=== PATIENT | male | born 1985 | race Caucasian/White ===

== ENCOUNTER 2018-12-18 02:50 | Inpatient (IN) | payer BC ==
[2018-12-18] MEDS ORDERED: ACETAMINOPHEN 500 MG TAB PO PRN (03:50)
[2018-12-18] MEDS ORDERED: MORPHINE 2 MG/ML SYR IV PRN (03:50)
--- NOTE | 2018-12-18 04:16 | P.HP ---
Certification for Inpatient Patient admitted to: Inpatient With expected LOS: >2 Midnights Practitioner: I am a practitioner with admitting privileges, knowledge of patient current condition, hospital course, and medical plan of care. Services: Services provided to patient in accordance with Admission requirements found in Title 42 Section 412.3 of the Code of Federal Regulations Patient History Date of Service: 12/18/18 Reason for admission: acute pancreatitis History of Present Illness: Mr Tse is a 33 years old male with pretty benign past medical history, however, he drinks at least 2 liquor drinks every night. He start with nausea on and off about 2 weeks ago. Yesterday morning, he start having abdominal pain , mostly localized on epigastrium and left upper quadrant, constant, worse when he lay down and get better when he sit up. Intensity is 10/10. He denied fever or chills. The patient went to [facility] last night, CT abd/pelvis was remarkable for non-obstructive cholelithiasis, and signs of acute pancreatitis, Lab work showed normal WBC count, chemistry was not done. At my encounter, the patient was in moderate distress due to abdominal pain. Allergies No Known Allergies Allergy (Unverified 12/18/18 03:13) Home medications list reviewed: Yes Home Medications: NK [No Home Meds] 12/18/18 - Past Medical/Surgical History Has patient received pneumonia vaccine in the past: No Diabetic: No -: lasik - Family History Father -: Hypertension Mother -: Hypertension - Social History Smoking Status: Former smoker Alcohol use: Yes CD- Drugs: No Caffeine use: Yes Place of Residence: Home Review of Systems 10-point ROS is otherwise unremarkable Physical Examination - Physical Exam General: Alert, In no apparent distress HEENT: Atraumatic, PERRLA, Mucous membr. moist/pink, EOMI, Sclerae nonicteric Neck: Supple, 2+ carotid pulse no bruit, No LAD, Without JVD or thyroid abnormality Respiratory: Clear to auscultation bilaterally, Normal air movement Cardiovascular: Regular rate/rhythm, Normal S1 S2 Gastrointestinal: Normal bowel sounds, Tenderness (tender to palpation epigastrium and LUQ) Musculoskeletal: No tenderness Integumentary: No rashes Neurological: Normal gait, Normal speech, Normal strength at 5/5 x4 extr, Normal tone, Normal affect Lymphatics: No axilla or inguinal lymphadenopathy Assessment and Plan - Problems (Diagnosis) (1) Acute pancreatitis Current Visit: Yes Status: Acute Qualifiers: Pancreatitis type: unspecified pancreatitis type Acute pancreatitis complication: unspecified Qualified Code(s): K85.90 - Acute pancreatitis without necrosis or infection, unspecified (2) Alcohol abuse Current Visit: Yes Status: Acute - Plan Will admit the patient due to acute pancreatitis. Will order CBC/d, CMP, amylase , lipase, lipid profile and abdominal US. Continue NPO, IV fluids and symptomatic medication for pain and nausea. Watch for alcohol withdrawal symptoms. - Advance Directives Does patient have a Living Will: No Does patient have a Durable POA for Healthcare: No - Code Status/Comfort Care Code Status Assessed: Yes Code Status: Full Code
[2018-12-18] MEDS: NA CHLORIDE 0.9% 1,000 ML IV SCH ×3 (04:43→12:47)
[2018-12-18] MEDS: ONDANSETRON 4 MG/2 ML VIAL IV PRN (04:44)
[2018-12-18 05:17] LABS: Protime INR 1.04
[2018-12-18 05:25] LABS: ALT/SGPT 147 U/L (12-78); AST/SGOT 277 U/L (15-37); Albumin 2.7 g/dL (3.4-5.0); Alkaline Phosphatase 179 U/L (45-117); Amylase Level 107 U/L (25-115); BUN Blood Urea Nitrogen 9 mg/dL (7-18); Bicarbonate 25 mmol/L (21-32); Bilirubin Total 3.2 mg/dL (0.2-1.0); Glucose Level 130 mg/dL (74-106); Lipase 4186 U/L (73-393); Potassium 4.4 mmol/L (3.5-5.1); Protein, Total 6.7 g/dL (6.4-8.2); Sodium Level 135 mmol/L (136-145)
[2018-12-18 05:30] LABS: Absolute Lymphocytes (CBC) 1.4 K/uL (0.7-4.9); Absolute Monocytes 0.3 K/uL (0.1-1.3); Absolute Neutrophil 6.4 K/uL (1.8-8.0); Basophils % 1.1 % (0-1.3); Hematocrit 41.2 % (39.6-49.0); Lymphocytes % 17.1 % (15.3-44.8); MPV 10.9 fL (7.6-11.3); Monocytes % 3.7 % (3.3-12.3); RBC Red Blood Cell Count 4.04 M/uL (4.33-5.43)
[2018-12-18 06:00] LABS: HDL Cholesterol 25 mg/dL (40-60); LDL, Direct 195 mg/dL (100-129)
--- NOTE | 2018-12-18 08:40 | RAD REPORT ---
EXAM DESCRIPTION: US - Abdomen Exam Complete - 12/18/2018 8:04 am CLINICAL HISTORY: Abdominal pain. acute pancreatitis COMPARISON: No comparisons FINDINGS: Prominent diffuse fatty infiltration of the liver is seen. No focal liver lesions or intra hepatic biliary dilatation is seen. The gallbladder demonstrates no gallstones, pericholecystic fluid or gallbladder wall thickening. Co mmon bile duct is normal in caliber measuring 4 mm. Both kidneys are normal in size, shape and echotexture. No hydronephrosis, focal lesion of concern or perinephric fluid. The spleen is normal in size measuring 10 cm. The pancreas and aorta are obscured by bowel gas. The visualized aspects of the IVC are grossly normal. IMPRESSION: Diffuse fatty liver is present.
[2018-12-18] MEDS ORDERED: MORPHINE 2 MG/ML SYR IV ONE (09:59)
[2018-12-18] MEDS: ENOXAPARIN 40 MG/0.4 ML SQ SCH (12:43)
[2018-12-18] MEDS: MORPHINE 4 MG/ML SYR IV PRN ×2 (16:06→22:55)
[2018-12-18] MEDS ORDERED: GLUCAGON 1 MG/VIAL IM PRN ×2 (16:32→16:39)
[2018-12-18] MEDS ORDERED: D50W 25 GM/50 ML SYRINGE IV PRN (16:32)
[2018-12-18] MEDS ORDERED: INSULIN -REGULAR HUMAN 100 UNIT in NA CHLORIDE 0.9% 100 ML IV SCH (16:45)
[2018-12-18] MEDS ORDERED: D5 0.45 NS 1,000 ML IV SCH (17:00)
[2018-12-18] MEDS: INSULIN -REGULAR HUMAN 100 UNIT in NA CHLORIDE 0.9% 100 ML IV SCH (17:03)
[2018-12-18] MEDS: D5 0.45 NS 1,000 ML IV SCH ×2 (19:00→22:55)
[2018-12-18] MEDS: HYDROMORPHONE HCL 1 MG/ML INJ IV PRN (19:16)
[2018-12-18] MEDS: D50W 25 GM/50 ML SYRINGE IV PRN ×3 (20:08→22:40)
--- NOTE | 2018-12-18 20:28 | PN ---
Date of Progress Note: 12/18/2018 Subjective: The patient seen and examined. Chart reviewed and case discussed with RN. The patient states that his pain has improved; however, still hurting. Has not had any further vomiting, but sti ll nauseous. Medications: List reviewed. Physical Examination: Vital Signs: Temperature 98.7, heart rate 83, blood pressure 134/80, respirations 14, O2 96% on room air. General: Awake, alert oriented x3, in some mild distress. CV: S1, S2. Peripheral pulses present. No murmurs. Respiratory: Moving air well bilaterally. No wheezing or stridor. Gastrointestinal: Abdomen is soft. Tenderness to palpation. The patient does have some voluntary gu arding. No rigidity. Bowel sounds hypoactive. Extremities: No clubbing, cyanosis, or edema. Neurologic: Nonfocal. Laboratory Data: Sodium 135, potassium 4.4, chloride 99, CO2 25, BUN 9, creatinine 1.04, glucose 130 , calcium 7.3, AST 277, ALT 147, alkaline phosphatase 179, albumin 2.7, total protein 6.7, triglyceri wen greater than 4000, cholesterol 431, LDL 195, HDL 25. Amylase 107, lipase 4186. WBC 8.2, H and H 14.1 and 41.2, platelets 129. Abdominal ultrasound shows diffuse fatty liver. Assessment And Plan: A 33-year-old male with: 1.Acute pancreatitis likely secondary to alcohol and elevated triglycerides. We will continue with IV fluids and adjust pain medications. Increase dose of morphine. The patient was recently in [place] ER, found to have nonobstructive cholelithiasis. There was no necrosis or infection. 2.Alcohol abuse, acute. 3.Elevated triglyceride levels. We will start the patient on insulin and monitor triglyceride level s. Plan: Transfer to ICU for IV insulin. Monitor triglyceride levels. Keep n.p.o. GI consultation. SA/MODL Voice ID: [id number] Report ID: [id number]
[2018-12-19] MEDS: D50W 25 GM/50 ML SYRINGE IV PRN ×8 (00:15→12:37)
[2018-12-19] MEDS: HYDROMORPHONE HCL 1 MG/ML INJ IV PRN ×5 (00:56→20:28)
[2018-12-19] MEDS: D5 0.45 NS 1,000 ML IV SCH ×4 (01:40→21:58)
[2018-12-19] MEDS: INSULIN -REGULAR HUMAN 100 UNIT in NA CHLORIDE 0.9% 100 ML IV SCH (04:26)
[2018-12-19] MEDS: MORPHINE 4 MG/ML SYR IV PRN ×3 (04:32→18:35)
[2018-12-19] MEDS: ONDANSETRON 4 MG/2 ML VIAL IV PRN (04:39)
[2018-12-19 06:40] VITALS: BMI 23.7
[2018-12-19 07:51] LABS: LDL, Direct 168 mg/dL (100-129)
[2018-12-19] MEDS: ENOXAPARIN 40 MG/0.4 ML SQ SCH (08:09)
[2018-12-19] MEDS ORDERED: SODIUM CHLORIDE 0.9% 10ML INJ IV PRN (08:20)
[2018-12-19] MEDS ORDERED: D5 NS IV SCH ×2 (09:00)
[2018-12-19] MEDS ORDERED: [UNRECOGNIZED DRUG - OTHER] IV SCH ×2 (09:00)
[2018-12-19 09:18] LABS: Bilirubin Total 3.3 mg/dL (0.2-1.0); Protein, Total 6.1 g/dL (6.4-8.2)
[2018-12-19] MEDS: PANTOPRAZOLE 40 MG INJ IVP SCH (09:45)
[2018-12-19 13:58] LABS: LDL, Direct 178 mg/dL (100-129)
--- NOTE | 2018-12-19 16:04 | PN ---
Date of Progress Note: 12/19/2018 Subjective: The patient seen and examined. Chart reviewed and case discussed with RN. The patient states his abdominal pain is better, however, still having some nausea. The patient was transferred to the ICU yesterday and placed on insulin drip. The patient did have some hypoglycemic episodes due to the insulin drip. His IV fluids will be adjusted. No further vomiting. Medications: List reviewed. Physical Examination: Vital Signs: Temperature 98.7, heart rate 121, blood pressure 120/77, respirations 19, and O2 93% on room air. General: Awake, alert, oriented x3. Some mild distress due to pain. Ill-appearing male. CV: S1, S2. Sinus tachycardia. Peripheral pulses present. Respiratory: Moving air well bilaterally. No wheezing or stridor. Gastrointestinal: Abdomen is distended. Mild rigidity is present. No rebound or guarding. Tendern ess to palpation. Bowel sounds positive. Extremities: No clubbing, cyanosis, or edema. Neurologic: Nonfocal. Laboratory Data: Sodium 131, potassium unable to be reported due to the patient's elevated triglycer ides in the blood, chloride 98, CO2 25, BUN 3, creatinine 1.06, glucose 205, calcium 6.2, corrected c alcium is 8, albumin is 2, lipase is 1402, triglycerides are 2020. Assessment: A 33-year-old male with: 1.Acute pancreatitis secondary to alcohol and elevated triglycerides, improving. Lipase level trend ing down. Triglycerides are also improving. We will adjust IV fluid rate and switch to D10 half NS. GI has been consulted. No necrosis or infection seen on CT scans. 2.Alcohol abuse. Counseled. 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 We will continue on insulin drip. Triglyceride levels carolyn nding down. Recheck this afternoon. If less than a 1000, we will take the patient off insulin drip. 4.Pseudohypocalcemia. Corrected calcium is 8. Plan: Continue to monitor in ICU setting. SA/MODL Voice ID: [id number] Report ID: [id number]
[2018-12-20] MEDS: HYDROMORPHONE HCL 1 MG/ML INJ IV PRN ×4 (00:15→20:35)
[2018-12-20] MEDS: MORPHINE 4 MG/ML SYR IV PRN (03:34)
[2018-12-20] MEDS: D5 0.45 NS 1,000 ML IV SCH ×4 (04:00→20:35)
[2018-12-20 05:44] LABS: Bicarbonate 31 mmol/L (21-32); Glucose Level 142 mg/dL (74-106); Potassium 3.9 mmol/L (3.5-5.1); Sodium Level 134 mmol/L (136-145)
[2018-12-20 05:45] LABS: BUN Blood Urea Nitrogen < 1 mg/dL (7-18)
[2018-12-20 05:50] LABS: Magnesium 1.2 mg/dL (1.8-2.4)
[2018-12-20 06:02] LABS: LDL, Direct 171 mg/dL (100-129)
[2018-12-20] MEDS ORDERED: Magnesium Sulfate 2gm IVPB 2 G/50 ML BAG IV ONE (07:00)
[2018-12-20] MEDS: ENOXAPARIN 40 MG/0.4 ML SQ SCH (08:47)
[2018-12-20] MEDS: PANTOPRAZOLE 40 MG INJ IVP SCH (08:48)
[2018-12-20] MEDS ORDERED: CALCIUM GLUC 10% INJ 4.65 MEQ in NA CHLORIDE 0.9% 100 ML IV ONE (11:23)
--- NOTE | 2018-12-20 14:48 | PN ---
Date of Progress Note: 12/20/2018 Subjective: The patient seen and examined. Chart reviewed and case discussed with RN. The patient still n.p.o. States pain is better. Did have some episodes of dizziness while getting up, now off i nsulin drip. Medications: List reviewed. Physical Examination: Vital Signs: Temperature 98.9, heart rate 103, blood pressure 122/77, respirations 18, and O2 97% on 2 L via nasal cannula. General: Awake, alert, and oriented x3. Ill-appearing male. CV: S1 and S2. Sinus tachycardia. No murmurs. Respiratory: Moving air well bilaterally. No wheezing or stridor. Gastrointestinal: Abdomen is somewhat distended, rigid. Hypoactive bowel sounds. Tenderness to pal pation. Extremities: No clubbing, cyanosis, or edema. Neurologic: Nonfocal. Laboratory Data: Sodium 134, potassium 3.9, chloride 97, CO2 31, BUN less than 1, creatinine 0.91, g lucose 142, calcium 6.8, magnesium 1.2. Triglycerides 638, LDL is 171. Lipase is 890. Assessment And Plan: A 33-year-old male with: 1.Acute pancreatitis secondary to alcohol use and elevated triglycerides, improving. Lipase levels are trending down. Triglyceride levels also trending down. The patient now off IV insulin. We will continue IV fluids. We will start on clear liquid diet. Appreciate Dr. Pfeiffer's input. We will mo nitor CBC, CMP, trend lipase level. 2.Alcohol abuse, counseled. 3.Hypertriglyceridemia, now off insulin drip, trending down. 4.Hypocalcemia. We will replace and monitor. 5.Hypomagnesemia. We will replace and monitor. 6.Gastrointestinal and deep venous thrombosis prophylaxis. SCDs and PPI. The patient is also on Lo venox. Plan: Step down from ICU. Start on clear liquid diet if okay with GI. SA/MODL Voice ID: [id number] Report ID: [id number]
[2018-12-20] MEDS ORDERED: NA CHLORIDE 0.9% 1,000 ML IV ONE (16:00)
[2018-12-20 16:42] LABS: Hematocrit 33.3 % (39.6-49.0); MPV 10.8 fL (7.6-11.3); RBC Red Blood Cell Count 3.38 M/uL (4.33-5.43)
[2018-12-20 17:09] LABS: Blood Morphology Comment NOTED (NOT SEEN); Platelet Estimate ADEQ
[2018-12-20 17:10] LABS: Stomatocytes 2+; Target Cells FEW
--- NOTE | 2018-12-20 17:15 | P.PN ---
Date of Service: 12/20/18 nurse called regarding VS showing tachycardia, temp of 100.4 flagging for sepsis. Lactate, WBC normal. Not clinically in sepsis. Will bolus with IVFs NS 1L. reassess.
--- NOTE | 2018-12-20 20:13 | P.PN ---
Subjective Date of Service: 12/20/18 Chief Complaint: acute pancreatitis due to EtOH / TGs Subjective: Improving (He feels much better with minimal abdominal pain. No N/ V. Lipase down from 4186 to 890 (still elevated).) Review of Systems 10-point ROS is otherwise unremarkable Gastrointestinal: Abdominal Pain (Improved) Physical Examination - Vital Signs Temperature: 100.4 F Blood Pressure: 138/89 Pulse: 116 Respirations: 20 Pulse Ox (%): 97 - Physical Exam General: Alert, In no apparent distress, Oriented x3, Cooperative HEENT: Atraumatic, Normocephalic, PERRLA, EOMI Neck: 2+ carotid pulse no bruit Respiratory: Normal air movement Cardiovascular: Normal pulses Gastrointestinal: No rebound, No guarding, Tenderness (mild at most) Neurological: Normal speech, Normal strength at 5/5 x4 extr - Studies Laboratory Data (last 24 hrs) 12/20/18 16:20: WBC 7.4, Hgb 11.4 L D, Hct 33.3 L D, Plt Count 102 L D 12/20/18 15:30: Magnesium 1.8 D 12/20/18 05:10: Lipase 890 H 12/20/18 05:10: Sodium 134 L, Potassium 3.9, BUN < 1 L, Creatinine 0.91, Glucose 142 H, Magnesium 1.2 L* 12/20/18 05:10: Triglycerides 638 H, LDL Cholesterol Direct 171 H Assessment And Plan - Current Problems (Diagnosis) (1) Hypertriglyceridemia Current Visit: Yes Status: Acute (2) Epigastric abdominal pain Current Visit: Yes Status: Acute (3) Acute pancreatitis Current Visit: Yes Status: Acute Qualifiers: Pancreatitis type: unspecified pancreatitis type Acute pancreatitis complication: unspecified Qualified Code(s): K85.90 - Acute pancreatitis without necrosis or infection, unspecified (4) Alcohol abuse Current Visit: Yes Status: Acute - Plan REC: 1) NPO except ice chips / sips of water (await lipase to be normal before advancing diet) 2) AA on discharged 3) evaluation for TG genetic abnormality 4) continue IVFs at 150 cc/o
[2018-12-20] MEDS ORDERED: MAGNESIUM SULFATE 1 gm IVPB 1 GM/100 ML BAG IV ONE (21:00)
[2018-12-21] MEDS: HYDROMORPHONE HCL 1 MG/ML INJ IV PRN ×2 (01:39→06:02)
[2018-12-21] MEDS: D5 0.45 NS 1,000 ML IV SCH ×4 (02:26→23:57)
[2018-12-21 05:11] LABS: Absolute Lymphocytes (CBC) 1.8 K/uL (0.7-4.9); Absolute Monocytes 0.5 K/uL (0.1-1.3); Absolute Neutrophil 3.9 K/uL (1.8-8.0); Basophils % 1.3 % (0-1.3); Eosinophils % 1.1 % (0-4.4); Hematocrit 31.1 % (39.6-49.0); Lymphocytes % 28.2 % (15.3-44.8); MPV 10.2 fL (7.6-11.3); Monocytes % 7.6 % (3.3-12.3); RBC Red Blood Cell Count 3.14 M/uL (4.33-5.43)
[2018-12-21 05:33] LABS: ALT/SGPT 70 U/L (12-78); AST/SGOT 75 U/L (15-37); Alkaline Phosphatase 114 U/L (45-117); BUN Blood Urea Nitrogen 2 mg/dL (7-18); Bicarbonate 29 mmol/L (21-32); Bilirubin Total 3.1 mg/dL (0.2-1.0); Glucose Level 125 mg/dL (74-106); Lipase 605 U/L (73-393); Magnesium 2.2 mg/dL (1.8-2.4); Potassium 3.4 mmol/L (3.5-5.1); Sodium Level 134 mmol/L (136-145)
[2018-12-21] MEDS ORDERED: POTASSIUM CL SA 10 MEQ TAB PO ONE ×2 (05:43→13:08)
[2018-12-21] MEDS: PANTOPRAZOLE 40 MG INJ IVP SCH (08:30)
[2018-12-21] MEDS: ENOXAPARIN 40 MG/0.4 ML SQ SCH (08:30)
[2018-12-21] MEDS: HYDROCODONE/APAP 7.5/325 MG TAB PO PRN ×2 (10:47→23:55)
[2018-12-21] MEDS: MORPHINE 4 MG/ML SYR IV PRN (16:20)
--- NOTE | 2018-12-21 16:42 | P.PN ---
Subjective Date of Service: 12/21/18 Chief Complaint: acute pancreatitis due to EtOH / TGs Subjective: Improving (RLQ/LLQ pain mild today. Tolerating water and ice chips , also had some CLs last night. Lipase continues to slowly decline from 890 yesterday to 605 today.) Review of Systems 10-point ROS is otherwise unremarkable Gastrointestinal: Abdominal Pain (mild lower abdominal pain today, denies constipation) Physical Examination - Vital Signs Temperature: 99.1 F Blood Pressure: 133/82 Pulse: 91 Respirations: 18 Pulse Ox (%): 96 - Physical Exam General: Alert, In no apparent distress, Oriented x3, Oriented x1, Cooperative HEENT: Atraumatic, Normocephalic, PERRLA, EOMI, Scleral icterus Neck: Supple Respiratory: Normal air movement Cardiovascular: Normal pulses Gastrointestinal: Soft and benign, No rebound, No guarding, Tenderness (mild RLQ /LLQ tenderness ) Neurological: Normal speech, Normal strength at 5/5 x4 extr - Studies Laboratory Data (last 24 hrs) 12/21/18 12:49: Potassium 3.5 12/21/18 04:38: WBC 6.3 D, Hgb 10.7 L, Hct 31.1 L, Plt Count 107 L 12/21/18 04:38: Sodium 134 L, Potassium 3.4 L, BUN 2 L, Creatinine 0.81, Glucose 125 H, Magnesium 2.2, Total Bilirubin 3.1 H, AST 75 H D, ALT 70, Alkaline Phosphatase 114, Triglycerides 307 H, Lipase 605 H 12/20/18 16:20: WBC 7.4, Hgb 11.4 L D, Hct 33.3 L D, Plt Count 102 L D Assessment And Plan - Current Problems (Diagnosis) (1) Hypertriglyceridemia Current Visit: Yes Status: Acute Comment: Improved. (2) Epigastric abdominal pain Current Visit: Yes Status: Acute Comment: Resolved. (3) Acute pancreatitis Current Visit: Yes Status: Acute Comment: Improved. Qualifiers: Pancreatitis type: unspecified pancreatitis type Acute pancreatitis complication: unspecified Qualified Code(s): K85.90 - Acute pancreatitis without necrosis or infection, unspecified (4) Alcohol abuse Current Visit: Yes Status: Acute - Plan REC: 1) limited clear liquids 2) AA on discharged 3) evaluation for TG genetic abnormality 4) continue IVFs at 150 cc/o
--- NOTE | 2018-12-21 18:22 | PN ---
Subjective: The patient is seen and examined. Chart reviewed and case discussed with RN. The patie nt denies any significant abdominal pain. Does have some discomfort. No nausea or vomiting. Medications: List reviewed. Physical Examination: Vital Signs: Temperature 99.7, heart rate 92, blood pressure 135/92, respirations 18, O2 95% on room air. General: Awake, alert, oriented x3, not in any acute distress, ill-appearing male. CV: S1, S2. Regular rate and rhythm. No murmurs. Respiratory: Moving air well bilaterally. No wheezing or stridor. Gastrointestinal: Abdomen is mildly rigid. Mild tenderness to palpation. Minimal distention. Reynaldo l sounds positive. Extremities: No clubbing, cyanosis, or edema. Neurologic: Nonfocal. Laboratory Data: Sodium 134, potassium 3.4, repeat potassium level is 3.5, chloride 101, CO2 29, BUN 2, creatinine 0.81, glucose 125, calcium 7.3, AST 75, ALT 70, total bilirubin 3.1, albumin 2, trigly cerides 307. WBC 6.3, H and H 10.7/31.1, platelets 107. Assessment: A 33-year-old male with: 1.Acute pancreatitis secondary to alcohol use and elevated triglycerides. Lipase levels and triglyc eride levels are trending down. The patient does however have some elevated total bilirubin. We anai l check direct bilirubin level. Continue IV fluids. The patient switched back to n.p.o. except ice chips and pills by GI. We would consider advancing diet to full liquids and to GI soft. This is the patient's third day in the hospital. Overall, improving. Still has some abdominal discomfort, but no nausea or vomiting. 2.Hypertriglyceridemia, improving. The patient will benefit from Repatha. 3.Alcohol abuse. Counseled. 4.Hypocalcemia. Corrected calcium is normal. The patient has albumin level of 2. 5.Hypoalbuminemia, albumin of 2. 6.Hypomagnesemia. Replaced. We will continue to monitor. 7.Hypokalemia. Replaced. 8.Gastrointestinal and deep venous thrombosis prophylaxis with Lovenox and PPI. Plan: Advance diet as tolerated. Monitor lipase levels and triglyceride levels. If total bilirubin does not improve, may need MRCP or CT scan to rule out ductal stones. /LIVIER Voice ID: [id number] Report ID: [id number]
[2018-12-22 06:44] LABS: ALT/SGPT 55 U/L (12-78); AST/SGOT 46 U/L (15-37); Alkaline Phosphatase 120 U/L (45-117); BUN Blood Urea Nitrogen 3 mg/dL (7-18); Bicarbonate 27 mmol/L (21-32); Bilirubin Total 2.4 mg/dL (0.2-1.0); Glucose Level 121 mg/dL (74-106); Lipase 758 U/L (73-393); Potassium 3.9 mmol/L (3.5-5.1); Protein, Total 6.1 g/dL (6.4-8.2); Sodium Level 138 mmol/L (136-145)
[2018-12-22 06:51] LABS: Absolute Lymphocytes (CBC) 1.9 K/uL (0.7-4.9); Absolute Monocytes 0.6 K/uL (0.1-1.3); Absolute Neutrophil 3.1 K/uL (1.8-8.0); Basophils % 1.2 % (0-1.3); Eosinophils % 1.1 % (0-4.4); Hematocrit 29.4 % (39.6-49.0); Lymphocytes % 33.8 % (15.3-44.8); MPV 9.8 fL (7.6-11.3); Monocytes % 9.9 % (3.3-12.3); RBC Red Blood Cell Count 2.93 M/uL (4.33-5.43)
[2018-12-22] MEDS: D5 0.45 NS 1,000 ML IV SCH ×2 (06:55→09:40)
[2018-12-22] MEDS: ENOXAPARIN 40 MG/0.4 ML SQ SCH (08:31)
[2018-12-22] MEDS: PANTOPRAZOLE 40 MG INJ IVP SCH (08:32)
[2018-12-22 10:03] VITALS: O2SAT 97
[2018-12-22 12:39] VITALS: BP 133/99; TEMP 99.2
--- NOTE | 2018-12-22 14:27 | P.PN ---
Subjective Date of Service: 12/22/18 Chief Complaint: acute pancreatitis due to EtOH / TGs Subjective: No new changes (He feels better. Tolerated CLs and FLs with slight increase in lipase. He knows to abstain from all EtOH and will likely need EtOH rehab program. Appears to have early signs of end stage liver disease with low platelets. Also his hgb has declined to anemic levels 9-10 as well. He is to see endocrinology as outpatient for elevated TGs > 4,000 on admission with cholesterol of 431.) Review of Systems 10-point ROS is otherwise unremarkable General: Weakness (Improved) Physical Examination - Vital Signs Temperature: 99.2 F Blood Pressure: 133/99 Pulse: 92 Respirations: 16 Pulse Ox (%): 96 - Physical Exam General: Alert, In no apparent distress, Cooperative HEENT: Atraumatic, Normocephalic, PERRLA, EOMI Neck: Supple Respiratory: Normal air movement Cardiovascular: Normal pulses Gastrointestinal: No rebound, No guarding, Tenderness (mild at most) Neurological: Normal speech, Normal strength at 5/5 x4 extr - Studies Laboratory Data (last 24 hrs) 12/22/18 06:09: Sodium 138, Potassium 3.9, BUN 3 L, Creatinine 0.74, Glucose 121 H, Total Bilirubin 2.4 H, AST 46 H, ALT 55, Alkaline Phosphatase 120 H, Lipase 758 H 12/22/18 06:09: WBC 5.7, Hgb 9.9 L, Hct 29.4 L, Plt Count 118 L Assessment And Plan - Current Problems (Diagnosis) (1) Hypertriglyceridemia Current Visit: Yes Status: Acute Comment: Improved. (2) Epigastric abdominal pain Current Visit: Yes Status: Acute Comment: Resolved. (3) Acute pancreatitis Current Visit: Yes Status: Acute Comment: Improved. Qualifiers: Pancreatitis type: unspecified pancreatitis type Acute pancreatitis complication: unspecified Qualified Code(s): K85.90 - Acute pancreatitis without necrosis or infection, unspecified (4) Alcohol abuse Current Visit: Yes Status: Acute (5) Thrombocytopenia Current Visit: Yes Status: Acute (6) Anemia Current Visit: Yes Status: Acute - Plan REC: 1) clear liquids and advance slowly to LF/LC diet 2) AA on discharged (no EtOH) 3) evaluation for TG genetic abnormality -> endocrinology appt soon as outpatient & being discharged with TG medication 4) continue hydrating beverages 5) GI clinic f/u 6) HAV/HBV vaccinations & Thiamine / Folate supplements 7) consider low dose Librium for 7-10 days
--- NOTE | 2018-12-23 13:21 | DS ---
Date of Discharge: 12/22/2018 [place]: Dr. Pfeiffer with GI. Admitting Diagnoses: 1. Acute pancreatitis. 2. Alcohol abuse. Discharge Diagnoses: 1. Acute pancreatitis. 2. 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 3. Alcohol abuse, counseled. 4. Hypocalcemia. 5. Hypoalbuminemia. 6. Hypomagnesemia, corrected. 7. Hypokalemia, replaced. Hospital Course: The patient is a 33-year-old male, who was admitted to the hospital for acute pancreatitis. The patient does have history of alcohol abuse , drinks 2 liquor drinks every day. The patient gone to [facility]. CT scan at the [facility] facility was remarkable for nonobstructive cholelithiasis and signs of acute pancreatitis. The patient's workup showed normal WBC count, however, lipase was significantly elevated at 4186. The patient was started on IV fluids. The patient was counseled regarding his alcohol use. He was understanding and recommended to go to after discharge. The patient's triglycerides were also severely elevated at greater than 4000. The patient was transferred to the ICU, started on IV insulin. His triglyceride levels improved and were down to 300 on the last check. The patient's condition improved slowly. [facility], Dr. Pfeiffer, was also consulted. His white count remained stable, did not have any signs of sepsis. He did have some electrolyte abnormalities, which were corrected. The patient's blood cultures remained negative. He did not have any signs of sepsis. The patient was also recommended to follow up with an bar staff, who specializes in hypertriglyceridemia treatment. The patient's condition improved. He was able to tolerate a soft diet. Once his lipase level had improved, he did have a slight bump in his level, however, clinically he has improved significantly. He did not having abdominal pain. No nausea or vomiting. He was able to ambulate. The patient was then discharged. The patient refused to take Repatha injection and also is cost prohibitive. The patient will be discharged on triglyceride lowering medication. Activity: As tolerated. Diet: [place] diet. No fried or fatty foods. Absolutely, no alcohol. Followup: Follow up with primary care physician in 2-3 days. Follow up with [facility] , Dr. Pfeiffer, in 2 weeks. Follow up with bar staff in [place], Dr. Meade , in 2-4 weeks. Return to ER for worsening condition. Physical Examination: General: Awake, alert, oriented x3. No acute distress. CV: S1, S2. No murmurs, rubs, or gallops. Respiratory: Moving air well bilaterally. Abdomen: Soft, nontender, nondistended. Positive bowel sounds. Extremities: No clubbing, cyanosis, or edema. Neurologic: Nonfocal. Total time spent DC pt was 33 minutes /LIVIER Voice ID: [id number] Report ID: [id number] [facility]
== END 2018-12-22 14:24 | disposition home or self-care (01) | DRG 440 ==
LOC: 2ND 02:58 → 3RD-ICU 16:15 → 4TH 12-20 13:10
PROVIDERS: ADMIT Internal Medicine; ATTEND Family Medicine
PROC: HZ31ZZZ Individual Counseling for Substance Abuse Treatment, Behavioral (ICD-10-PCS; principal; 2018-12-18)
DX: K85.20 Alcohol induced acute pancreatitis without necrosis or infection (principal); E83.51 Hypocalcemia; E83.42 Hypomagnesemia; E78.1 Pure hyperglyceridemia; F10.10 Alcohol abuse, uncomplicated; E87.6 Hypokalemia; D69.6 Thrombocytopenia, unspecified; D64.9 Anemia, unspecified
CPT/HCPCS: 36415; 76700; 80048; 80053; 80061; 82150; 82248; 82962; 83605; 83690; 83735; 84132; 84145; 84478; 85025; 85610; 87040; C9113; J0610; J1170; J1650; J2270; J2405; J3475; J7030